=== PATIENT | female | born 1970 | race Caucasian/White ===

== ENCOUNTER → 2017-02-19 | Outpatient (CLI) | payer OTHER ==
--- NOTE | 2017-02-19 16:06 | FL ---
EXAMINATION TYPE: FL barium swallow DATE OF EXAM: 02/19/2017 CLINICAL HISTORY: Dysphagia R13.10,EPIGASTRIC PAIN,K21.9 Contrast: 4 ounces of thin barium The patient ingested contrast without difficulty. Noted are changes of gastric sleeve. Within the mid portion of the gastric sleeve there is a filling defect identified which may reflect impacted or obst ructing food debris. Distal to this filling defect there is luminal narrowing which could be related to stricture. Small amount of contrast is seen within the distal portion of the sleeve beyond the poi nt of obstruction. Obstruction is near complete. IMPRESSION: High-grade obstruction at the level of the mid gastric sleeve with apparent filling defec t which may reflect obstructing food debris with distal stricture. Direct visualization is recommendjordan alvarado
== END | disposition home or self-care (01) ==
LOC: RADFLWHC 15:09
PROVIDERS: ATTEND Surgery
DX: K56.69 Other intestinal obstruction (principal); R13.10 Dysphagia, unspecified; R10.13 Epigastric pain; K21.9 Gastro-esophageal reflux disease without esophagitis
CPT/HCPCS: 74220

== ENCOUNTER → 2017-02-19 | Outpatient (CLI) | payer OTHER ==
[2017-02-19 15:06] VITALS: BP 133/77; PULSE 80; TEMP 97.8; BMI 23.1
--- NOTE | 2017-03-05 16:58 | P.HPBAR ---
Bariatric H&P - History & Physicial H&P Date: 02/19/17 History & Physicial: Visit/CC: folow up visit Patient initial contact: Initial weight: Initial weight in pounds: Height: 5 ft 5 in Initial BMI: Last weight: Current weight: 62.913 kg Current weight in pounds: 138.70 Current BMI: 23.1 [place] body weight (based on NIH guidelines): 56.699 kg Excess body weight loss: The patient is a 46 year-old F who presents for Bariatric Assessment. Patient presents today for sleeve gastric her fall. She has complaints of some GERD and dysphagia. The patient states that she has had trouble for several weeks. Past Medical History Past Medical History: GERD/Reflux Additional Past Medical History / Comment(s): HX MIGRAINES, History of Any Multi-Drug Resistant Organisms: None Reported Past Surgical History: Appendectomy, Bariatric Surgery, Bladder Surgery, Cholecystectomy, Hysterectomy Additional Past Surgical History / Comment(s): lap band , LAP BAND REMOVED. GASTRIC SLEEVE,COLONOSCOPY Past Anesthesia/Blood Transfusion Reactions: Postoperative Nausea & Vomiting ( PONV) Past Psychological History: Depression Smoking Status: Never smoker - Past Family History Mother Family Medical History: No Reported History Sister(s) Family Medical History: Cancer Surgical - Exam Vital Signs Temp Pulse BP 97.8 F 80 133/77 02/19/17 15:00 02/19/17 15:00 02/19/17 15:00 - General well developed, no distress - Abdomen Abdomen: soft, non tender Bariatric Assessment & Plan Plan: Patient's esophagram shows a possible narrowing of the gastric sleeve. She'll be scheduled for EGD and possible dilatation. Bariatric Checklist Checklist: Plan: Checklist: EGD: 1. Hiatal hernia: 2. H. Pylori: HgbA1c: Vitamin D: Smoking: Never smoker Primary care physician referral: dr sagastume Psychiatry clearance: Cardiology clearance: Sleep study: Diet journal: VTE risk score: VTE risk level: Rehab needs at discharge:
== END | disposition home or self-care (01) ==
LOC: BARWHC3 13:48
PROVIDERS: ATTEND Surgery
DX: Z09 Encounter for follow-up examination after completed treatment for conditions other than malignant neoplasm (principal); F32.9 Major depressive disorder, single episode, unspecified; K21.9 Gastro-esophageal reflux disease without esophagitis; R13.10 Dysphagia, unspecified; Z98.84 Bariatric surgery status
CPT/HCPCS: 99211

== ENCOUNTER 2017-02-21 13:47 | Day surgery (SDC) | payer OTHER ==
[2017-02-20 10:53] VITALS: BMI 22.8
[~2017-02-21 13:47] MED LIST: LACTATED RINGERS 1,000 ML IV SCH; LIDOCAINE 1% 20 ML VIAL (10MG/ML) FOR IV START INTRADERMA PRN
[2017-02-21 14:21] VITALS: TEMP 97.1
--- NOTE | 2017-02-21 14:51 | P.GSHP ---
History of Present Illness H&P Date: 02/21/17 Chief Complaint: Dysphagia This a 38-year-old female who presents today for EGD. Patient's. History of gastric sleeve. She's had complaints of dysphagia. Her recent esophagram shows a possible mid sleeve gastric stricture. She does today for EGD with balloon dilatation. Patient rhythm risks of surgery including possible gastric perforation. - Constitutional Constitutional: Reports as per HPI Past Medical History Past Medical History: GERD/Reflux Additional Past Medical History / Comment(s): HX MIGRAINES,freq urination History of Any Multi-Drug Resistant Organisms: None Reported Past Surgical History: Appendectomy, Bariatric Surgery, Bladder Surgery, Cholecystectomy, Hysterectomy Additional Past Surgical History / Comment(s): lap band , LAP BAND REMOVED. GASTRIC SLEEVE,COLONOSCOPY,INTERSTIM PLACEMENT LT BUTTOCK. Past Anesthesia/Blood Transfusion Reactions: Postoperative Nausea & Vomiting ( PONV) Additional Past Anesthesia/Blood Transfusion Reaction / Comment(s): no hx blood transfusion Smoking Status: Never smoker - Past Family History Father Family Medical History: Cancer Additional Family Medical History / Comment(s): father Mother Family Medical History: No Reported History Sister(s) Family Medical History: Cancer Medications and Allergies Home Medications Medication Instructions Recorded Confirmed Type Nortriptyline [Pamelor] 10 mg PO HS 08/15/14 02/21/17 History Citalopram Hydrobromide [CeleXA] 20 mg PO QAM 02/20/17 02/21/17 History Propranolol HCl [Propranolol HCl 80 mg PO HS 02/20/17 02/21/17 History ER] Ranitidine HCl [Zantac] 150 mg PO BID PRN 02/20/17 02/21/17 History Solifenacin Succinate [Vesicare] 10 mg PO DAILY 02/20/17 02/21/17 History Allergies Allergy/AdvReac Type Severity Reaction Status Date / Time latex Allergy Itching Verified 02/21/17 14:14 codeine AdvReac Rash/Hives Verified 02/21/17 14:14 propoxyphene napsylate AdvReac Rash/Hives Verified 02/21/17 14:14 [From Harshal-Shiraz] "CLEAR SKIN HOUSEKEEPING SUPERVISOR" PRE-OP Allergy Itching Uncoded 02/21/17 14:14 INCISIONAL GLUE Allergy Rash/Hives Uncoded 02/21/17 14:14 STERI STRIPS Allergy Rash/Hives Uncoded 02/21/17 14:14 Surgical - Exam Vital Signs Temp Pulse BP Pulse Ox 97.1 F L 58 L 114/79 99 02/21/17 14:18 02/21/17 14:18 02/21/17 14:18 02/21/17 14:18 - General well developed, no distress - Eyes PERRL - ENT normal pinna - Neck no masses - Respiratory normal expansion - Cardiovascular Rhythm: regular - Abdomen Abdomen: soft, non tender Assessment and Plan Plan: Dysphagia. We will perform EGD with balloon dilatation.
[2017-02-21] MEDS ORDERED: PROPOFOL 10 MG/ML 20 ML VIAL IV ONE (14:55)
[2017-02-21] MEDS ORDERED: LIDOCAINE 1% INJ 10MG/ML (20 ML MDV) ONE (14:55)
--- NOTE | 2017-02-21 15:17 | P.OP ---
Date of Procedure: 02/21/17 Preoperative Diagnosis: Dysphagia Postoperative Diagnosis: Dysphagia secondary to stricture gastric sleeve Procedure(s) Performed: EGD with balloon dilatation Implants: Anesthesia: MAC Surgeon: Luis Grimaldo Pathology: none sent Condition: stable Disposition: PACU Indications for Procedure: Operative Findings: Description of Procedure: The patient's placed in the endoscopy table in the lateral position. She received IV sedation. The gastroscope placed oropharynx and passed into the esophagus and stomach. Scope was then placed in the pylorus and into the first second portion duodenum. Scope was withdrawn and at the incisura of the stomach appeared to be a slight stricture. This area was balloon dilated is a 20 mm balloon. Balloon was held position for 3 minutes this was done sequentially 3 times. Scope was withdrawn remainder of the gaseously appeared normal. The GE junction was at 47 is. The distal esophagus appeared normal. The proximal esophagus appeared normal. Scope was withdrawn for patient.
[2017-02-21 15:28] VITALS: RESP 18
[2017-02-21 15:43] VITALS: PULSE 58
[2017-02-21 16:05] VITALS: BP 114/71
== END 2017-02-21 16:20 | disposition home or self-care (01) ==
LOC: ORWHC2ENDO 13:47
PROVIDERS: ATTEND Surgery
DX: K31.89 Other diseases of stomach and duodenum (principal); K21.9 Gastro-esophageal reflux disease without esophagitis; Z98.84 Bariatric surgery status; G43.909 Migraine, unspecified, not intractable, without status migrainosus; F32.9 Major depressive disorder, single episode, unspecified; Z79.899 Other long term (current) drug therapy; Z91.040 Latex allergy status; Z91.09 Other allergy status, other than to drugs and biological substances
CPT/HCPCS: 43245; J2001; J2704; C1726; 44799

== ENCOUNTER → 2017-03-05 | Outpatient (CLI) | payer OTHER ==
[2017-03-05 14:09] VITALS: BP 117/64; PULSE 71; RESP 16; TEMP 97.7; BMI 23.1
--- NOTE | 2017-03-05 16:15 | P.HPBAR ---
Bariatric H&P - History & Physicial H&P Date: 03/05/17 History & Physicial: Visit/CC: sleeve follow-up Patient initial contact: Initial weight: Initial weight in pounds: Height: 5 ft 5 in Initial BMI: Last weight: 138 Current weight: 63.106 kg Current weight in pounds: 139.00 Current BMI: 23.1 [place] body weight (based on NIH guidelines): 56.699 kg Excess body weight loss: The patient is a 46 year-old F who presents for Bariatric Assessment. Patient presents for sleeve follow-up. She underwent EGD with balloon dilatation her sleeve last week. She states her dysphagia and GERD symptoms have improved. She denies any nausea or vomiting. Past Medical History Past Medical History: GERD/Reflux Additional Past Medical History / Comment(s): HX MIGRAINES,freq urination History of Any Multi-Drug Resistant Organisms: None Reported Past Surgical History: Appendectomy, Bariatric Surgery, Bladder Surgery, Cholecystectomy, Hysterectomy Additional Past Surgical History / Comment(s): lap band , LAP BAND REMOVED. GASTRIC SLEEVE,COLONOSCOPY,INTERSTIM PLACEMENT LT BUTTOCK. Past Anesthesia/Blood Transfusion Reactions: Postoperative Nausea & Vomiting ( PONV) Additional Past Anesthesia/Blood Transfusion Reaction / Comm: no hx blood transfusion Smoking Status: Never smoker - Past Family History Father Family Medical History: Cancer Additional Family Medical History / Comment(s): father Mother Family Medical History: No Reported History Sister(s) Family Medical History: Cancer Surgical - Exam Vital Signs Temp Pulse Resp BP 97.7 F 71 16 117/64 03/05/17 14:04 03/05/17 14:04 03/05/17 14:04 03/05/17 14:04 - General well developed, no distress - Eyes PERRL - ENT normal pinna - Neck no masses - Respiratory normal expansion - Cardiovascular Rhythm: regular - Abdomen Abdomen: soft, non tender Bariatric Assessment & Plan Plan: Status post sleeve gastrectomy with history of dysphagia. Patient is improved after her EGD with balloon dilatation. She'll follow-up in one month for recheck. Patient still has complaints of crampy lower quadrant dull pain. If this is still present she will undergo colonoscopy next month. Bariatric Checklist Checklist: Plan: Checklist: EGD: 1. Hiatal hernia: 2. H. Pylori: HgbA1c: Vitamin D: Smoking: Never smoker Primary care physician referral: dr sagastume Psychiatry clearance: Cardiology clearance: Sleep study: Diet journal: VTE risk score: VTE risk level: Rehab needs at discharge:
== END | disposition home or self-care (01) ==
LOC: BARWHC3 13:57
PROVIDERS: ATTEND Surgery
DX: Z09 Encounter for follow-up examination after completed treatment for conditions other than malignant neoplasm (principal); R10.30 Lower abdominal pain, unspecified; Z98.84 Bariatric surgery status
CPT/HCPCS: 99211

== ENCOUNTER → 2017-07-03 | Outpatient (CLI) | payer OTHER ==
--- NOTE | 2017-07-03 16:27 | BD ---
EXAMINATION TYPE: MG DEXA axial skeleton. DATE OF EXAM: 07/03/2017 COMPARISON: NONE CLINICAL HISTORY: 47-year-old female disorder of bone Height: 64.5 IN Weight: 139 LBS FRAX RISK QUESTIONS: Alcohol (3 or more units per day): NO Family History (Parent hip fracture): NO Glucocorticoids (More than 3mos): NO (Ex: prednisone, prednisolone, methylprednisolone, dexamethasone, and hydrocortisone). History of Fracture in Adulthood: NO Secondary Osteoporosis: 1. Type 1 Diabetes: NO 2. Hyperthyroidism: NO 3. Menopause before 45: YES AGE 32 4. Malnutrition: NO 5. Chronic liver disease: NO Rheumatoid Arthritis: NO Current Tobacco Use: NO RISK FACTORS HISTORY OF: Family History of Osteoporosis: YES (M) GRANDMOTHER Active: YES Diet low in dairy products/other sources of calcium: YES Postmenopausal woman: AGE 32 MEDICATIONS: Additional Medications: MIGRAINE MEDS,VESICARE, EXAM MEASUREMENTS: Bone mineral densitometry was performed using the [employer] System. Bone mineral density as measured about the Lumbar spine is: ----- L1-L4(G/cm2): 1.328 T Score Values are as follows: ----- L2: 1.1 ----- L3: 0.8 ----- L4: 1.7 ----- L1-L4: 1.2 Bone mineral density BASELINE Bone mineral density about the R hip (g/cm2): 1.007 Bone mineral density about the L hip (g/cm2): 1.007 T Score values are as follows: -----R Neck: -0.2 -----L Neck: -0.2 -----R Total: 0.1 -----L Total: 0.2 Bone mineral density BASELINE IMPRESSION: Normal bone mineral density as indicated by Z score values (rather than T score values as the patient is less than 50 years old) in the lumbar spine and both hips. Rescreen in 5 years. NOTE: T-SCORE=SD OF THE YOUNG ADULT MEAN.
--- NOTE | 2017-07-04 13:03 | MM ---
Reason for exam: screening (asymptomatic). Last mammogram was performed 2 years ago. History: Patient is postmenopausal and has history of endometrial cancer at age 32. Cancelled Right US Needle Biopsy of the right breast, August 17, 2009. Physical Findings: A clinical breast exam by your physician is recommended on an annual basis and results should be correlated with mammographic findings. MG Screening Mammo w CAD Bilateral CC and MLO view(s) were taken. Prior study comparison: June 23, 2015, bilateral MG screening mammo w CAD. August 05, 2009, bilateral diagnostic digital mammog. There are scattered fibroglandular densities. No suspicious abnormality. ASSESSMENT: Negative, BI-RAD 1 RECOMMENDATION: Routine screening mammogram of both breasts in 1 year.
== END | disposition home or self-care (01) ==
LOC: RADMAMWWP 08:55
PROVIDERS: ATTEND Family Medicine
DX: Z12.31 Encounter for screening mammogram for malignant neoplasm of breast (principal); M81.0 Age-related osteoporosis without current pathological fracture
CPT/HCPCS: 77080; G0202

== ENCOUNTER 2017-10-26 15:19 | Emergency (ER) | payer BC, OTHER ==
[2017-10-26 15:46] VITALS: PULSE 66
[2017-10-26] MEDS ORDERED: SODIUM CHLORIDE 0.9% 1,000 ML IV STA (17:44)
[2017-10-26] MEDS ORDERED: METOCLOPRAMIDE 5 MG/ML 2 ML VIAL IVP STA (17:44)
[2017-10-26] MEDS ORDERED: KETOROLAC 30 MG/ML 1 ML VIAL IVP STA (17:44)
[2017-10-26] MEDS ORDERED: diphenhydrAMINE 50 MG/ML 1 ML VIAL IVP STA (17:44)
--- NOTE | 2017-10-26 17:45 | ED ---
General Adult HPI - General Chief complaint: Headache Stated complaint: Migraine Time Seen by Provider: 10/26/17 17:39 Source: patient, RN notes reviewed Mode of arrival: ambulatory Limitations: no limitations - History of Present Illness Initial comments: Patient 47-year-old female seen a few past medical history for migraines, who presents emergency room today with chief complaint of migraine headache that began earlier in the day. She describes it as a throbbing type headache located in the front of her head. Patient states that she has had symptoms of nausea vomiting. She states the symptoms are consistent with migraine headaches that she's had in the past. She denies any other complaints or symptoms. Patient denies any recent fever, chills, shortness of breath, chest pain, back pain, abdominal pain, numbness or tingling, dysuria or hematuria, constipation or diarrhea, visual changes, or any other complaints. - Related Data Home Medications Medication Instructions Recorded Confirmed Nortriptyline [Pamelor] 10 mg PO HS 08/15/14 10/26/17 Citalopram Hydrobromide [CeleXA] 20 mg PO QAM 02/20/17 10/26/17 Propranolol HCl [Propranolol HCl 80 mg PO HS 02/20/17 10/26/17 ER] Solifenacin Succinate [Vesicare] 10 mg PO DAILY 02/20/17 10/26/17 Allergies Allergy/AdvReac Type Severity Reaction Status Date / Time latex Allergy Itching Verified 10/26/17 17:35 codeine AdvReac Rash/Hives Verified 10/26/17 17:35 propoxyphene napsylate AdvReac Rash/Hives Verified 10/26/17 17:35 [From Rozn-N] "CLEAR SKIN GARAGE DOOR TECHNICIAN" PRE-OP Allergy Itching Uncoded 10/26/17 15:46 INCISIONAL GLUE Allergy Rash/Hives Uncoded 10/26/17 15:46 STERI STRIPS Allergy Rash/Hives Uncoded 10/26/17 15:46 Review of Systems ROS Statement: Those systems with pertinent positive or pertinent negative responses have been documented in the HPI. ROS Other: All systems not noted in ROS Statement are negative. Past Medical History Past Medical History: GERD/Reflux Additional Past Medical History / Comment(s): HX MIGRAINES,freq urination History of Any Multi-Drug Resistant Organisms: None Reported Past Surgical History: Appendectomy, Bariatric Surgery, Bladder Surgery, Cholecystectomy, Hysterectomy Additional Past Surgical History / Comment(s): lap band , LAP BAND REMOVED. GASTRIC SLEEVE,COLONOSCOPY,INTERSTIM PLACEMENT LT BUTTOCK. Past Anesthesia/Blood Transfusion Reactions: Postoperative Nausea & Vomiting ( PONV) Additional Past Anesthesia/Blood Transfusion Reaction / Comment(s): no hx blood transfusion Past Psychological History: Depression Smoking Status: Never smoker Past Alcohol Use History: None Reported Past Drug Use History: None Reported - Past Family History Father Family Medical History: Cancer Additional Family Medical History / Comment(s): father Mother Family Medical History: No Reported History Sister(s) Family Medical History: Cancer General Exam - General Exam Comments Initial Comments: General: The patient is awake and alert, in no distress, and does not appear acutely ill. Eye: Pupils are equal, round and reactive to light, extra-ocular movements are intact. No nystagmus. There is normal conjunctiva bilaterally. No signs of icterus. Ears, nose, mouth and throat: There are moist mucous membranes and no oral lesions. Neck: The neck is supple. Cardiovascular: There is a regular rate and rhythm. No murmur, rub or gallop is appreciated. Respiratory: Lungs are clear to auscultation, respirations are non-labored, breath sounds are equal. No wheezes, stridor, rales, or rhonchi. Musculoskeletal: Normal ROM, no tenderness. Strength 5/5. Sensation intact. Pulses equal bilaterally 2+. Neurological: A&O x 3. CN II-XII intact, There are no obvious motor or sensory deficits. Coordination appears grossly intact. Speech is normal. Skin: Skin is warm and dry and no rashes or lesions are noted. Psychiatric: Cooperative, appropriate mood & affect, normal judgment. Limitations: no limitations Course Vital Signs 10/26/17 15:44 Temperature 97.2 F L Pulse Rate 66 Respiratory 16 Rate Blood Pressure 130/78 O2 Sat by Pulse 100 Oximetry Medical Decision Making - Medical Decision Making Patient reexamined at this time shows no signs of distress. Patient was given Toradol, Reglan, Benadryl, and IV fluids liter bolus here in emergency room. She states feeling much better at this time. Patient will be discharged home. Disposition Clinical Impression: Migraine Disposition: HOME SELF-CARE Condition: Good Instructions: Migraine Headache (ED) Additional Instructions: Please use medication as discussed. Please follow-up with family doctor in the next 2 days of symptoms have not improved. Please return to emergency room if the symptoms increase or worsen or for any other concerns. Referrals: Roselyn Tuttle MD [Primary Care Provider] - 1-2 days Time of Disposition: 18:52
[2017-10-26 19:22] VITALS: BP 111/55; RESP 18; TEMP 97.7
== END 2017-10-26 19:20 | disposition home or self-care (01) ==
LOC: EC 15:19
DX: G43.909 Migraine, unspecified, not intractable, without status migrainosus (principal); F32.9 Major depressive disorder, single episode, unspecified; Z79.899 Other long term (current) drug therapy; Z88.5 Allergy status to narcotic agent; Z91.040 Latex allergy status; Z91.048 Other nonmedicinal substance allergy status
CPT/HCPCS: 99283; 96374; 96375 ×2; 96361; J1200; J2765; J1885

== ENCOUNTER → 2018-07-24 | Outpatient (CLI) | payer BC ==
--- NOTE | 2018-07-24 09:52 | CT ---
EXAMINATION TYPE: CT abdomen w con DATE OF EXAM: 07/24/2018 COMPARISON: NONE HISTORY: 48-year-old female Periumbilic swelling/mass/lump TECHNIQUE: Contiguous axial scanning of the abdomen following administration of 100 ml Isovue 300 IV contrast. Delayed images through the kidneys and coronal/sagittal reconstructions performed. CT DLP: 867 mGycm Automated exposure control for dose reduction was used. FINDINGS: Heart normal size without pericardial effusion. Lung bases clear without pleural effusion. Postsurgical changes along the stomach likely relating to the sleeve gastrectomy. There is some diste ntion of the body of the stomach suggesting underlying small hiatal hernia. Mild circumferential wall thickening of the distal esophagus with the contrast column seen within the lower esophagus and mary tional contrast within the stomach and proximal to mid small bowel. No focal liver lesion or biliary ductal dilatation. Portal venous system is patent. Cholecystectomy clips. Adrenal glands, spleen, and pancreas show no gross abnormality. Nonobstructive 1.1 cm lower pole right renal calculus and a subcentimeter hypodensity posterior left kidney too small for accurate CT characterization, likely cyst. No dilated small bowel, free fluid, or free air. No mesenteric or retroperitoneal lymphadenopathy. There is a 1.6 x 0.8 cm soft tissue nodule within the deep subcutaneous fat of the left paramedian up per to mid abdomen. A returned surgical clip is present in the upper right paramedian rectus abdomino us, axial image 26. Additional scattered surgical clips within the upper mentum. Moderate stool burden without pericolonic inflammatory change seen in the upper abdomen. Bones: Degenerative changes lower lumbar spine. There is grade 1 anterolisthesis L4-L5. IMPRESSION: 1. EVIDENCE OF PRIOR LAP BAND. THERE IS A 1.6 X 0.8 CM SOFT TISSUE NODULE IN THE SUBCUTANEOUS FAT LEF T PARAMEDIAN ABDOMEN PROBABLY REPRESENTING SCAR TISSUE AT THE SITE OF PATIENT'S OLD LAP BAND PORT. C ORRELATE FOR ANY PALPABLE ABNORMALITY. 2. POST SURGICAL CHANGES OF SLEEVE GASTRECTOMY. THE SURGERIZED STOMACH IS MILD TO MODERATELY DISTENDE D. 3. SMALL HIATAL HERNIA FILLED WITH CONTRAST AND ADDITIONAL CONTRAST EXTENDING UP INTO THE LOWER ESOPH LAZARUS. CORRELATE FOR GASTROESOPHAGEAL REFLUX. 4. MILD CIRCUMFERENTIAL WALL THICKENING OF THE DISTAL ESOPHAGUS COULD REPRESENT ESOPHAGITIS. 5. 1.1 CM NONOBSTRUCTIVE RIGHT RENAL CALCULUS. 6. MODERATE STOOL BURDEN.
== END | disposition home or self-care (01) ==
LOC: RADCTMAIN 08:10
PROVIDERS: ATTEND Family Medicine
DX: K44.9 Diaphragmatic hernia without obstruction or gangrene (principal); N20.0 Calculus of kidney; K31.89 Other diseases of stomach and duodenum; K22.8 Other specified diseases of esophagus; R19.09 Other intra-abdominal and pelvic swelling, mass and lump; Z90.3 Acquired absence of stomach [part of]; Z98.84 Bariatric surgery status
CPT/HCPCS: 74160; Q9967

== ENCOUNTER → 2020-08-18 | Outpatient (CLI) | payer OTHER ==
--- NOTE | 2020-08-18 15:14 | US ---
EXAMINATION TYPE: US kidneys/renal and bladder DATE OF EXAM: 08/18/2020 COMPARISON: NONE CLINICAL HISTORY: N20.0 CALCULUS OF KIDNEY. History of right kidney stones EXAM MEASUREMENTS: Right Kidney: 12.0 x 3.9 x 3.9 cm Left Kidney: 11.5 x 5.7 x 4.1 cm Right Kidney: stone mid/inferior pole = 0.8cm Left Kidney: no evidence of hydronephrosis Bladder: not fully distended Bilateral Jets seen: no There is no evidence for hydronephrosis at this point in time. No masses are identified. The urinar y bladder is anechoic. Bilateral ureteral jets are seen. IMPRESSION: Nonobstructing calculus mid pole right kidney.
== END | disposition home or self-care (01) ==
LOC: RADUSWWP 13:41
PROVIDERS: ATTEND Urology
DX: N20.0 Calculus of kidney (principal)
CPT/HCPCS: 76770

== ENCOUNTER → 2020-11-15 | Outpatient (CLI) | payer OTHER ==
[2020-11-15 13:40] VITALS: BP 149/89; PULSE 64; RESP 18; TEMP 98.2; BMI 24.0
--- NOTE | 2020-11-15 16:24 | P.HPBAR ---
Bariatric H&P - History & Physicial H&P Date: 11/15/20 History & Physicial: Visit/CC: follow up Patient initial contact: Initial weight: Initial weight in pounds: Height: 5 ft 5 in Initial BMI: Last weight: Current weight: 65.589 kg Current weight in pounds: 144.60 Current BMI: 24.0 [place] body weight (based on NIH guidelines): 56.699 kg Excess body weight loss: The patient is a 50 year-old F who presents for Bariatric Assessment. Patient presents today for sleeve history of fall. She is doing quite well. She segments of GERD. Past Medical History Past Medical History: GERD/Reflux Additional Past Medical History / Comment(s): HX MIGRAINES,freq urination History of Any Multi-Drug Resistant Organisms: None Reported Past Surgical History: Appendectomy, Bariatric Surgery, Bladder Surgery, Cholecystectomy, Hysterectomy Additional Past Surgical History / Comment(s): lap band , LAP BAND REMOVED. GASTRIC SLEEVE,COLONOSCOPY,INTERSTIM PLACEMENT LT BUTTOCK. Past Anesthesia/Blood Transfusion Reactions: Postoperative Nausea & Vomiting (PONV) Additional Past Anesthesia/Blood Transfusion Reaction / Comm: no hx blood transfusion Past Psychological History: Depression Smoking Status: Never smoker Past Alcohol Use History: None Reported Past Drug Use History: None Reported - Past Family History Father Family Medical History: Cancer Additional Family Medical History / Comment(s): father Mother Family Medical History: No Reported History Sister(s) Family Medical History: Cancer Surgical - Exam Vital Signs Temp Pulse Resp BP 98.2 F 64 18 149/89 11/15/20 13:35 11/15/20 13:35 11/15/20 13:35 11/15/20 13:35 - General well developed - Eyes PERRL - ENT normal pinna - Neck no masses - Respiratory normal expansion - Cardiovascular Rhythm: regular - Abdomen Abdomen: soft, non tender Bariatric Assessment & Plan Plan: Status post sleeve yesterday. Patient appears minimal abnormalities or follow- up in 4 weeks. Bariatric Checklist Checklist: Plan: Checklist: EGD: 1. Hiatal hernia: 2. H. Pylori: HgbA1c: Vitamin D: Smoking: Never smoker Primary care physician referral: Dr. Tuttle Psychiatry clearance: Cardiology clearance: Sleep study: Diet journal: VTE risk score: VTE risk level: Rehab needs at discharge:
== END | disposition home or self-care (01) ==
LOC: BARWHC3 13:06
PROVIDERS: ATTEND Surgery
DX: Z48.815 Encounter for surgical aftercare following surgery on the digestive system (principal); Z98.84 Bariatric surgery status; Z90.710 Acquired absence of both cervix and uterus; Z90.49 Acquired absence of other specified parts of digestive tract
CPT/HCPCS: 99211

== ENCOUNTER → 2020-11-24 | Outpatient (CLI) | payer OTHER ==
--- NOTE | 2020-11-24 13:15 | FL ---
EXAMINATION TYPE: FL barium swallow DATE OF EXAM: 11/24/2020 COMPARISON: None HISTORY: Dysphagia, history of gastric sleeve TECHNIQUE: A single contrast UGI study is performed. FINDINGS: Esophagus dilation normal caliber has a normal contour the gastroesophageal junction. Gastroesophagea l junction opens to normal caliber. No intraluminal or extramural defects are evident. In the horizon binh drinking position there is complete stripping of the esophageal bolus. No reflux could be elicite d during the exam. Fluoroscopy time: 50 seconds Images: 48 IMPRESSIONS: 1. Normal single contrast esophagram
== END | disposition home or self-care (01) ==
LOC: RADUSWWP 09:56
PROVIDERS: ATTEND Surgery
DX: R13.10 Dysphagia, unspecified (principal); Z98.84 Bariatric surgery status
CPT/HCPCS: 74220

== ENCOUNTER 2020-12-16 11:13 | Day surgery (SDC) | payer OTHER ==
[2020-12-14 11:18] VITALS: BMI 24.9
[~2020-12-16 11:13] MED LIST changes: -LIDOCAINE 1% 20 ML VIAL (10MG/ML) FOR IV START INTRADERMA PRN
[2020-12-16 12:48] VITALS: TEMP 97.8
[2020-12-16] MEDS ORDERED: LACTATED RINGERS 1,000 ML IV ONE (12:50)
[2020-12-16] MEDS ORDERED: ONDANSETRON 4 MG/2 ML VIAL ONE (12:51)
[2020-12-16] MEDS ORDERED: ONDANSETRON 4 MG/2 ML VIAL IVP ONE (12:53)
[2020-12-16] MEDS ORDERED: PROPOFOL 10 MG/ML 20 ML VIAL IV ONE (13:00)
[2020-12-16] MEDS ORDERED: LIDOCAINE 1% INJ 10MG/ML (20 ML MDV) ONE (13:00)
--- NOTE | 2020-12-16 13:02 | P.GSHP ---
History of Present Illness H&P Date: 12/16/20 Chief Complaint: GERD This is a 50-year-old female with history of sleeve history. Patient presents today for EGD. She has complaints of GERD. Past Medical History Past Medical History: GERD/Reflux Additional Past Medical History / Comment(s): MIGRAINES, COLITIS, HAS INTERSTIM BLADDER STIMULATOR. History of Any Multi-Drug Resistant Organisms: None Reported Past Surgical History: Appendectomy, Bariatric Surgery, Bladder Surgery, Cholecystectomy, Hysterectomy Additional Past Surgical History / Comment(s): l LAP BAND INSERTED & REMOVED. ,GASTRIC SLEEVE, BLADDER SUSPENSION AND RECTOCELE REPAIR., COLONOSCOPY,INTERSTIM BLADDER STIMULATOR PLACEMENT LT BUTTOCK ([employer]). Past Anesthesia/Blood Transfusion Reactions: Family History of Problems w/ Anesthesia, Postoperative Nausea & Vomiting (PONV) Additional Past Anesthesia/Blood Transfusion Reaction / Comment(s): PARENTS & SON=PONV Past Psychological History: No Psychological Hx Reported Smoking Status: Never smoker Past Alcohol Use History: Rare Past Drug Use History: None Reported - Past Family History Father Family Medical History: Cancer Additional Family Medical History / Comment(s): SKIN CANCER Mother Family Medical History: Cancer Additional Family Medical History / Comment(s): SKIN CANCER Sister(s) Family Medical History: Cancer Additional Family Medical History / Comment(s): SKIN CANCER Medications and Allergies Home Medications Medication Instructions Recorded Confirmed Type Nortriptyline [Pamelor] 10 mg PO HS 08/15/14 12/14/20 History Propranolol HCl [Propranolol HCl 80 mg PO HS 02/20/17 12/14/20 History ER] Omeprazole [PriLOSEC] 20 mg PO HS 11/15/20 12/14/20 History Menopautonic Supplement 1 dose PO DIRECTED 12/14/20 History Tolterodine ER [Detrol LA] 4 mg PO DAILY 12/14/20 12/14/20 History Allergies Allergy/AdvReac Type Severity Reaction Status Date / Time latex Allergy Itching Verified 12/14/20 10:53 codeine AdvReac Rash/Hives Verified 12/14/20 10:53 propoxyphene napsylate AdvReac Rash/Hives Verified 12/14/20 10:53 [From Eder] "[employer]IC[employer]" PRE-OP Allergy Itching Uncoded 12/14/20 10:53 INCISIONAL GLUE Allergy Rash/Hives Uncoded 12/14/20 10:53 STERI STRIPS Allergy Rash/Hives Uncoded 12/14/20 10:53 Surgical - Exam Vital Signs Temp 97.8 F 12/16/20 12:42 - General well developed, well nourished, no distress - Eyes PERRL - ENT normal pinna - Neck no masses - Respiratory normal expansion - Cardiovascular Rhythm: regular - Abdomen Abdomen: soft, non tender Assessment and Plan Assessment: GERD. We'll perform EGD.
--- NOTE | 2020-12-16 13:10 | P.OP ---
Date of Procedure: 12/16/20 Preoperative Diagnosis: GERD Postoperative Diagnosis: Antral gastritis Small hiatal hernia Procedure(s) Performed: EGD Anesthesia: MAC Surgeon: Luis Grimaldo Pathology: other (Antrum) Condition: stable Disposition: PACU Description of Procedure: The patient's placed on the endoscopy table in the lateral position. She received IV sedation. The gastroscope placed oropharynx passed in the esophagus and stomach. Scope was then placed through the pylorus. The first and second portion of the duodenum appeared normal. Scope was brought back and the antrum this is minimally inflamed. A biopsies performed. The scope was then brought back through the stomach. Patient previous gastric sleeve. The sleeve appeared to be mildly dilated there is no unsteady focal stricture of the sleeve. The patient had a small hiatal hernia. The GE junction was at 39 cm. The distal esophagus. Normal. The proximal esophagus appeared normal. Scope was withdrawn for patient.
[2020-12-16 13:29] VITALS: BP 109/74; PULSE 65; RESP 16
== END 2020-12-16 13:57 | disposition home or self-care (01) ==
LOC: ORWHC2ENDO 11:13
PROVIDERS: ATTEND Surgery
DX: K29.70 Gastritis, unspecified, without bleeding (principal); K31.9 Disease of stomach and duodenum, unspecified; K44.9 Diaphragmatic hernia without obstruction or gangrene; Z98.84 Bariatric surgery status; G43.909 Migraine, unspecified, not intractable, without status migrainosus; K52.9 Noninfective gastroenteritis and colitis, unspecified; Z96.89 Presence of other specified functional implants; Z90.49 Acquired absence of other specified parts of digestive tract; Z90.710 Acquired absence of both cervix and uterus; Z98.890 Other specified postprocedural states; Z79.899 Other long term (current) drug therapy; Z91.040 Latex allergy status; Z88.5 Allergy status to narcotic agent
CPT/HCPCS: 88305; 43239; J2405; J2001; J2704

== ENCOUNTER → 2021-04-12 | Outpatient (CLI) | payer OTHER ==
--- NOTE | 2021-04-18 13:06 | HM ---
HOLTER MONITOR REPORT The patient in her diary did not indicate any significant symptoms. Predominant rhythm is sinus with a heart rate ranging from 50 to 107 beats per minute, with average heart rate of 69 beats per minute. Isolated ventricular ectopy, some of them in the bigeminal pattern, were noted. There was no significant supraventricular ectopy. There were no significant pauses noted. This is an unremarkable 48-hour Holter recording. FINAL IMPRESSION: Predominant sinus rhythm with isolated PVCs noted. No significant symptoms. This is an unremarkable 48-hour Holter recording. MMODL / IJN: [id number] /
== END | disposition home or self-care (01) ==
LOC: RADECHMAIN 11:46
PROVIDERS: ATTEND Internal Medicine Geriatric Medicine
DX: I49.3 Ventricular premature depolarization (principal)
CPT/HCPCS: 93225; 93226

== ENCOUNTER → 2022-07-07 | Outpatient (CLI) | payer OTHER ==
--- NOTE | 2022-07-07 14:10 | CT ---
EXAMINATION TYPE: CT abdomen pelvis w con DATE OF EXAM: 07/07/2022 COMPARISON: 07/24/2018 INDICATION: abdominal pain, weight loss DLP: 401.5 mGycm, Automated exposure control for dose reduction was used. CONTRAST: 100 mL of Isovue 370. Study performed with Oral Contrast TECHNIQUE: Axial images were obtained from above the diaphragm to the pubic rami in the axial plane a t 5 mm thick sections. Reconstructed images are reviewed on the computer in the coronal plane. FINDINGS: Limited CT sections are obtained the lung bases. The lung bases are clear. CT ABDOMEN: Postsurgical changes within the stomach. Correlate for prior gastric sleeve. Liver: Normal Spleen: Normal Pancreas: Normal Adrenal glands: The adrenal glands are normal. Gallbladder: Normal Kidneys: No masses are evident. No hydronephrosis is present. No cysts are present. Delayed images were obtained through the kidneys, which remain unremarkable. Aorta: Vascular calcification is within the aorta. Inferior vena cava: Normal. CT PELVIS: Loops of bowel within the abdomen and pelvis are normal. There are loops of bowel which are incom pletely distended or lack oral contrast limiting their evaluation. Appendix: Not identified. No suspicious dilated tubular structure or inflammatory changes are. Urinary bladder: Decompressed limiting evaluation. Genitourinary structures: Uterus and ovaries are not identified. Osseous structures: No suspicious lytic or sclerotic lesions. IMPRESSIONS: 1. No suspicious focal changes to account for patient's abdomen pain.
== END | disposition home or self-care (01) ==
LOC: RADCTMAIN 10:34
PROVIDERS: ATTEND Family Medicine
DX: R63.4 Abnormal weight loss (principal)
CPT/HCPCS: 74177; Q9967

== ENCOUNTER → 2022-09-15 | Outpatient (CLI) | payer OTHER ==
--- NOTE | 2022-09-15 13:29 | US ---
EXAMINATION TYPE: US kidneys/renal and bladder DATE OF EXAM: 09/15/2022 COMPARISON: CT 07/07/2022 & US 08/18/2020 CLINICAL HISTORY: N30.10 CYSTITIS. Pt states flank pain, urinary frequency EXAM MEASUREMENTS: Right Kidney: 10.7 x 4.2 x 3.9 cm Left Kidney: 10.1 x 4.4 x 5.1 cm Right Kidney: No evidence of hydro, probable renal calculi lower pole= 1.4 cm Left Kidney: No evidence of hydro, upper pole obscured by overlying bowel gas Bladder: wnl Bilateral Jets seen: No There is no evidence for hydronephrosis at this point in time. Shadowing calculus within the lower po le of the right kidney measuring 1.4 cm. No masses are identified. The urinary bladder is anechoic. IMPRESSION: 1. No hydronephrosis. 2. Nonobstructive right renal calculus.
== END | disposition home or self-care (01) ==
LOC: RADUSWWP 12:49
PROVIDERS: ATTEND Urology
DX: N20.0 Calculus of kidney (principal); N30.10 Interstitial cystitis (chronic) without hematuria
CPT/HCPCS: 76770

== ENCOUNTER → 2023-10-17 | Outpatient (CLI) | payer OTHER ==
--- NOTE | 2023-10-17 16:11 | BD ---
EXAMINATION TYPE: Axial Bone Density DATE OF EXAM: 10/17/2023 CLINICAL HISTORY: 53 years old Female. ICD-10 CODE: N95.1 MENOPAUSAL S M89.9 DISORDER OF BONE Height: 64.25 Weight: 122.6 FRAX RISK QUESTIONS: Alcohol (3 or more units per day): no Family History (Parent hip fracture): no Glucocorticoids (More than 3mos): no History of Fracture in Adulthood: hand Secondary Osteoporosis: 1. Type 1 Diabetes: no 2. Hyperthyroidism: no 3. Menopause before 45: no 4. Malnutrition: no 5. Chronic liver disease: no Rheumatoid Arthritis: no Current Tobacco Use: no RISK FACTORS HISTORY OF: Hip Fracture (Right/Left): no Spine Fracture: no History of Wrist Fracture: no Surgery to Spine/Hip(right/left)/Wrist (right/left): no MEDICATIONS: Thyroid Medications: no Osteoporosis Medications: no EXAM MEASUREMENTS: Bone mineral densitometry was performed using the [employer] System. Bone mineral density as measured about the Lumbar spine is: ----- L1-L4(G/cm2): 1.234 T Score Values are as follows: ----- L1: 0.2 ----- L2: 0.0 ----- L3: 0.1 ----- L4: 1.0 ----- L1-L4: 0.5 Z Score Values are as follows: ----- L1: 1.3 ----- L2: 1.1 ----- L3: 1.2 ----- L4: 2.2 ----- L1-L4: 1.6 Bone mineral density has: decreased -7.1 % since study of: 07/03/2017 Bone mineral density about the R hip (g/cm2): 0.911 Bone mineral density about the L hip (g/cm2): 0.992 T Score values are as follows: -----R Neck: -0.9 -----L Neck: -0.3 -----R Total: -0.8 -----L Total: -0.1 Z Score values are as follows: -----R Neck: 0.3 -----L Neck: 1.0 -----R Total: 0.1 -----L Total: 0.8 Bone mineral density has: decreased -7.5 % since study of: 07/03/2017 FRAX%s: The graph provided illustrates a 9.2% chance for a major osteoporotic fx and a 0.5% chance fo r the hips probability for fx in 10 years time. IMPRESSION: Normal (Values between +1 and -1 indicate normal bone mass). Consider repeating this study in 5 year s or sooner if there is some new clinical indication. NOTE: T-SCORE=SD OF THE YOUNG ADULT MEAN.
--- NOTE | 2023-10-18 10:44 | MM ---
Reason for Exam: Screening (asymptomatic). Last mammogram was performed 6 year(s) and 3 month(s) ago. Patient History: Menarche at age 7. First Full-Term at age 17. Hysterectomy at age 32. Postmenopausal. Endometrial cancer, age 32. 08/17/2009, Cancelled Right US Needle Biopsy on the right side. Risk Values: Meredith 5 year model risk: 0.9%. NCI Lifetime model risk: 6.6%. Prior Study Comparison: 08/05/2009 Bilateral Diagnostic Mammogram, [facility]. 06/23/2015 Bilateral Screening Mammogram, [facility]. 07/03/2017 Bilateral Screening Mammogram, [facility]. Tissue Density: The breast tissue is heterogeneously dense. This may lower the sensitivity of mammography. Findings: Analyzed By CAD. There is no suspicious group of microcalcifications or new suspicious mass in either breast. Benign calcification left breast. Benign-appearing 1 to 2 mm well-circumscribed tiny nodule upper outer quadrant right breast. Overall Assessment: Benign, BI-RAD 2 Management: Screening Mammogram of both breasts in 1 year. . Patient should continue monthly self-breast exams. A clinical breast exam by your physician is recommended on an annual basis. This exam should not preclude additional follow-up of suspicious palpable abnormalities. Note on Meredith scores and lifetime risk: 1. A Meredith score greater than 3% is considered moderate risk. If this is the case, consider specialist referral to assess eligibility for a risk reducing agent. 2. If overall lifetime risk for the development of breast cancer is 20% or higher, the patient may qualify for future screening with alternating mammogram and breast MRI. Electronically signed and approved by: Chilo Coker M.D. Radiologis
== END | disposition home or self-care (01) ==
LOC: RADMAMWWP 10:32
PROVIDERS: ATTEND Family Medicine
DX: Z12.31 Encounter for screening mammogram for malignant neoplasm of breast (principal); M89.9 Disorder of bone, unspecified; N95.1 Menopausal and female climacteric states; M85.89 Other specified disorders of bone density and structure, multiple sites
CPT/HCPCS: 77067; 77080

== ENCOUNTER → 2025-03-16 | Outpatient (CLI) | payer BC ==
[2025-03-17 02:15] LABS: Basophils # (A) 0.07 X 10*3/uL (0.00-0.10); Basophils % (A) 1.1 %; Eosinophils # (A) 0.13 X 10*3/uL (0.04-0.35); Eosinophils % (A) 2.1 %; HCT 37.4 % (37.2-50.0); HGB 11.3 g/dL (12.0-17.0); Immature Grans, Automated 0.30 %; Lymphocytes # (A) 2.22 X 10*3/uL (0.90-5.00); Lymphocytes % (A) 36.4 %; MCH 26.7 pg (27.0-32.0); MCHC 30.2 g/dL (32.0-37.0); MCV 88.4 FL (80.0-97.0); Monocytes # (A) 0.52 X 10*3/uL (0.20-1.00); Monocytes % (A) 8.5 %; NRBC Per 100 WBC 0 X 10*3/uL (0.00-0.01); Neutrophils # (A) 3.14 X 10*3/uL (1.80-7.70); Neutrophils % (A) 51.6 %; Platelet Count 290 X 10*3/uL (140-440); RBC 4.23 X 10*6/uL (4.10-5.60); RDW 14.1 % (11.5-14.5); WBC 6.10 X 10*3/uL (4.50-10.00)
[2025-03-17 08:47] LABS: Creatine Kinase 69 U/L (26-257)
[2025-03-17 08:48] LABS: ALT 13 U/L (8-49); AST 19 U/L (13-35); Albumin 3.8 g/dL (3.8-4.9); Albumin/Globulin Ratio 1.52 Ratio (1.60-3.17); Alkaline Phosphatase 98 U/L (41-126); Anion Gap 11.70 mmol/L (4.00-12.00); BUN/Creat Ratio 22.71 Ratio (12.00-20.00); Blood Urea Nitrogen 15.9 mg/dL (9.0-27.0); Calcium 9.2 mg/dL (8.7-10.3); Carbon Dioxide 25.3 mmol/L (21.6-31.8); Chloride 103 mmol/L (96-109); Globulin 2.5 g/dL (1.6-3.3); Glucose 91 mg/dL (70-110); Potassium 4.4 mmol/L (3.5-5.5); Sodium 140 mmol/L (135-145); T4, Free (Free Thyroxine) 0.98 ng/dL (0.80-1.80); Total Protein 6.3 g/dL (6.2-8.2); Uric Acid 3.7 mg/dL (2.9-8.7)
[2025-03-17 09:00] LABS: Bilirubin,Urine Negative (Negative); Blood,Urine Small (Negative); Color,Urine Colorless; Glucose,Urine (UA) Negative (Negative); Ketones,Urine Negative (Negative); Leukocyte Esterase,Urine Negative (Negative); Mucus,Urine Rare /hpf; Nitrite,Urine Negative (Negative); PH, Urine 5.5 (5.0-8.0); Protein,Urine 1+ (Negative); RBC,Urine 10 /hpf (0-5); Specific Gravity,Urine 1.024 (1.001-1.035); Squamous Epithelial Cell,Urine <1 /hpf (0-4); Urobilinogen,Urine <2.0 mg/dL (<2.0); WBC,Urine 3 /hpf (0-5)
[2025-03-17 22:31] LABS: Total Protein 24 Hour,Urine 1050.0 mg/24Hr (0.0-165.0); Total Volume 24 Hour,Urine 1000 mL
== END | disposition home or self-care (01) ==
LOC: LABWHC1 15:33
PROVIDERS: ATTEND Family Medicine
DX: N20.0 Calculus of kidney (principal); R80.9 Proteinuria, unspecified; R31.9 Hematuria, unspecified
CPT/HCPCS: 36415; 80053; 81001; 81050; 82043; 82550; 82570; 83883; 83970; 84156; 84165; 84439; 84443; 84550; 85025; 86038; 86334; 86335; 87086